=== PATIENT | female | born 1970 | race Caucasian/White ===

== ENCOUNTER → 2017-05-10 | Outpatient (CLI) | payer MEDICAID ==
--- NOTE | 2017-05-10 08:45 | US ---
EXAMINATION TYPE: US abdomen complete DATE OF EXAM: 05/10/2017 COMPARISON: NONE CLINICAL HISTORY: R10.84 ABD PAIN. Generalized pain, NPO EXAM MEASUREMENTS: Liver Length: 13.8 cm Gallbladder Wall: 0.2 cm CHD: 0.3 cm Spleen: 9.3 cm Right Kidney: 10.4 x 5.3 x 4.8 cm Left Kidney: 10.1 x 4.9 x 5.2 cm Pancreas: Body and tail obscured by overlying bowel gas Liver: Right posterior avascular echogenic lesion = 1.7 x 1.4 x 1.2 cm Gallbladder: wnl Evidence for sonographic Quintanilla's sign: neg CBD: Obscured by overlying bowel gas CHD: wnl Spleen: wnl Right Kidney: Lower pole cystic appearing lesion with some internal complexity = 1.7 x 1.5 x 1.6 cm Left Kidney: wnl Upper IVC: wnl Abd Aorta: wnl The liver is homogenous other than the above mentioned lesion. The intrahepatic portion of the IVC a nd proximal abdominal aorta are within normal limits. There is no evidence of cholelithiasis. The visualized portions of the pancreas are homogenous. The spleen is unremarkable. Kidneys are symmetr ic and free of hydronephrosis. IMPRESSION: 1. Solitary hyperechoic 1.7 cm hepatic lesion most commonly representing a hemangioma in a patient wi th no known underlying liver disease and in this age group. Further characterization could be perform ed with dynamic enhanced CT abdomen or abdominal MR if desired. 2. Right lower pole cystic appearing lesion with minimal internal complexity, possibly relating to he morrhagic cyst. This could be reassessed with short-term follow-up in 6-12 months.
== END | disposition home or self-care (01) ==
LOC: RADUSWWP 07:31
PROVIDERS: ATTEND Internal Medicine
DX: K76.9 Liver disease, unspecified (principal); N28.1 Cyst of kidney, acquired
CPT/HCPCS: 76700

== ENCOUNTER → 2017-05-10 | Outpatient (CLI) | payer MEDICAID ==
[2017-05-10 08:30] LABS: Basophils # (A) 0.1 k/uL (0-0.2); Basophils % (A) 1 %; Eosinophils # (A) 0.1 k/uL (0-0.7); Eosinophils % (A) 3 %; HCT 40.3 % (34.0-46.0); HGB 13.9 gm/dL (11.4-16.0); Lymphocytes # (A) 2.5 k/uL (1.0-4.8); Lymphocytes % (A) 46 %; MCH 32.3 pg (25.0-35.0); MCHC 34.6 g/dL (31.0-37.0); MCV 93.5 fL (80.0-100.0); Mean Platelet Volume 6.7; Monocytes # (A) 0.3 k/uL (0-1.0); Monocytes % (A) 5 %; Neutrophils # (A) 2.4 k/uL (1.3-7.7); Neutrophils % (A) 44 %; Platelet Count 271 k/uL (150-450); RBC 4.31 m/uL (3.80-5.40); RDW 12.3 % (11.5-15.5); WBC 5.5 k/uL (3.8-10.6)
[2017-05-10 10:19] LABS: ALT 23 U/L (9-52); AST 20 U/L (14-36); Albumin 3.9 g/dL (3.5-5.0); Alkaline Phosphatase 48 U/L (38-126); Anion Gap 9 mmol/L; Blood Urea Nitrogen 16 mg/dL (7-17); Calcium 9.1 mg/dL (8.4-10.2); Carbon Dioxide 25 mmol/L (22-30); Chloride 108 mmol/L (98-107); Cholesterol 216 mg/dL (<200); Glucose 86 mg/dL (74-99); HDL Cholesterol 59 mg/dL (40-60); LDL Cholesterol,Calculated 143 mg/dL (0-99); Potassium 4.3 mmol/L (3.5-5.1); Sodium 142 mmol/L (137-145); Total Bilirubin 0.5 mg/dL (0.2-1.3); Total Protein 6.8 g/dL (6.3-8.2); Triglycerides 69 mg/dL (<150)
== END | disposition home or self-care (01) ==
LOC: LABWHC1 08:01
PROVIDERS: ATTEND Internal Medicine
DX: Z00.00 Encounter for general adult medical examination without abnormal findings (principal); E55.9 Vitamin D deficiency, unspecified; R53.83 Other fatigue
CPT/HCPCS: 36415; 80053; 80061; 82306; 84439; 84443; 84481; 85025

== ENCOUNTER → 2017-05-17 | Outpatient (CLI) | payer MEDICAID ==
--- NOTE | 2017-05-20 10:58 | CT ---
EXAMINATION TYPE: CT abdomen pelvis w con DATE OF EXAM: 05/17/2017 COMPARISON: 05/10/2017 HISTORY: Left sided flank pain for [address] DLP: 944.6 mGycm Automated exposure control for dose reduction was used. CONTRAST: CT scan of the abdomen pelvis is performed with IV Contrast, patient injected with 100 mL of Omnipaqu e 300. FINDINGS- LUNG BASES- No significant abnormality is appreciated. LIVER/GB-there is a 1.5 cm lesion involving the posterior segment right lobe the liver which does not meet the criteria of simple cyst. May represent a small hemangioma. Either repeat CT scan with heman gioma protocol or MRI could BE obtained to confirm.. PANCREAS- No gross abnormality is seen. SPLEEN- No gross abnormality is seen. Tiny accessory spleen noted. ADRENALS- No gross abnormality is seen. KIDNEYS/BLADDER-there is a 1.5 cm lower pole right renal lesion suggestive of simple cyst. There is a 3 mm lower pole right renal calculus.. BOWEL- no bowel dilatation. Colon is decompressed which limits its evaluation. No obvious abnormalit y noted LYMPH NODES- No greater than 1cm abdominal or pelvic lymph nodes are appreciated. OSSEOUS STRUCTURES- No significant abnormality is seen. OTHER- aorta of normal caliber. No free fluid. IMPRESSION- 1. There is a 1.5 cm hepatic lesion corresponds with the hyperechoic lesion by ultrasound is most lik rach related to hemangioma. Follow-up with hemangioma protocol or MRI could BE obtained as clinically warranted. 2. Nonobstructing right renal stone. No evidence of left renal or ureteral stone. 3. 1.5 cm lower pole right renal lesion measures 20 Hounsfield units and does not meet the criteria o f a simple cyst. This also correlates with the recent ultrasound. A represent a hemorrhagic or high p roteinaceous content to a cyst. Other etiologies not excluded. MRI follow-up suggested.
== END | disposition home or self-care (01) ==
LOC: RADCTMAIN 16:09
PROVIDERS: ATTEND Internal Medicine
DX: N20.0 Calculus of kidney (principal); K76.89 Other specified diseases of liver
CPT/HCPCS: 74177; Q9967

== ENCOUNTER → 2017-06-05 | Outpatient (CLI) | payer MEDICAID ==
--- NOTE | 2017-06-06 08:52 | NM ---
Nuclear medicine hepatobiliary scan. HISTORY: Pain. DOSAGE: The patient 8 ounces of ensure plus and 5.19 mCi of Technetium 99m Choletec. FINDINGS: There is normal hepatic extraction. The gallbladder is seen by 20 minutes. Ejection fract ion is 73%. IMPRESSION: 1. Normal hepatobiliary exam
== END | disposition home or self-care (01) ==
LOC: RADNMMAIN 14:48
PROVIDERS: ATTEND Internal Medicine
DX: R10.9 Unspecified abdominal pain (principal)
CPT/HCPCS: 78226; A9537

== ENCOUNTER 2020-05-06 10:20 | Emergency (ER) | payer MEDICAID ==
[2020-05-06 10:29] VITALS: TEMP 97.5
[2020-05-06] MEDS ORDERED: ONDANSETRON 4 MG/2 ML VIAL IVP STA (10:46)
[2020-05-06] MEDS ORDERED: HYDROmorphone 0.5 MG/0.5 ML SYRINGE IVP STA (10:46)
[2020-05-06] MEDS ORDERED: SODIUM CHLORIDE 0.9% 500 ML 500 ML IV STA (10:46)
[2020-05-06] MEDS ORDERED: SODIUM CHLORIDE 0.9% 1,000 ML IV STA (10:46)
--- NOTE | 2020-05-06 11:12 | ED ---
Abdominal Pain HPI - General Chief Complaint: Abdominal Pain Stated Complaint: abd pain Time Seen by Provider: 05/06/20 10:31 Source: patient, family, RN notes reviewed Mode of arrival: ambulatory Limitations: no limitations - History of Present Illness Initial Comments: This is a 49-year-old female presents emergency Department chief complaint left lower quadrant abdominal pain. Patient states pain started 3 days ago. Patient states located left lower quadrant and radiates slightly to her back. 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 Patient states she took doses of Ex-Lax states that she had multiple bowel movements with no relief her symptoms. Patient even stopped her Bentyl which she normally takes for her IBS-D. patient denies any fevers chills no dysuria no hematuria she's had a prior full hysterectomy. No other abdominal surgeries. Patient states that movement makes her pain worse. No dysuria no hematuria no history kidney stones on the left. Patient has had multiple colonoscopies every 5 years and which she's had polyps no history of diverticulitis. Patient has a family history of colon cancer. - Related Data Home Medications Medication Instructions Recorded Confirmed Cholecalciferol (Vitamin D3) 125 mcg PO HS 05/06/20 05/06/20 [Vitamin D3 (5000 Iu)] Citalopram Hydrobromide [CeleXA] 40 mg PO HS 05/06/20 05/06/20 Cyanocobalamin (Vitamin B-12) 1,000 mcg PO HS 05/06/20 05/06/20 [Vitamin B-12] Dicyclomine [Bentyl] 10 mg PO HS 05/06/20 05/06/20 Omeprazole 20 mg PO HS 05/06/20 05/06/20 Previous Rx's Medication Instructions Recorded Amoxicillin/Potassium Clav 1 tab PO Q12HR #20 tab 05/06/20 [Augmentin 875-125 Tablet] Allergies Allergy/AdvReac Type Severity Reaction Status Date / Time DECONGESTANTS Allergy Unknown Uncoded 05/06/20 12:52 Review of Systems ROS Statement: Those systems with pertinent positive or pertinent negative responses have been documented in the HPI. ROS Other: All systems not noted in ROS Statement are negative. Past Medical History History of Any Multi-Drug Resistant Organisms: None Reported Past Surgical History: Hysterectomy, Orthopedic Surgery Additional Past Surgical History / Comment(s): right knee, jaw sx Past Psychological History: No Psychological Hx Reported Smoking Status: Never smoker Past Alcohol Use History: Daily Past Drug Use History: Marijuana General Exam Limitations: no limitations General appearance: alert, in no apparent distress Head exam: Present: atraumatic, normocephalic, normal inspection ENT exam: Present: normal exam, mucous membranes moist Neck exam: Present: normal inspection, full ROM. Absent: tenderness, meningismus, lymphadenopathy Respiratory exam: Present: normal lung sounds bilaterally. Absent: respiratory distress, wheezes, rales, rhonchi, stridor Cardiovascular Exam: Present: regular rate, normal rhythm, normal heart sounds. Absent: systolic murmur, diastolic murmur, rubs, gallop, clicks GI/Abdominal exam: Present: soft, tenderness (Moderate left lower quadrant tenderness), normal bowel sounds. Absent: distended, guarding, rebound, rigid Back exam: Absent: CVA tenderness (R), CVA tenderness (L) Neurological exam: Present: alert, oriented X3 Skin exam: Present: warm, dry, intact, normal color. Absent: rash Course Vital Signs 05/06/20 05/06/20 10:27 11:29 Temperature 97.5 F L Pulse Rate 68 Respiratory 16 18 Rate Blood Pressure 136/92 O2 Sat by Pulse 100 Oximetry Medical Decision Making - Medical Decision Making 49-year-old female presents emergency Department with chief complaint of abdominal pain CT shows evidence of uncomplicated colitis. Patient pain is improved this time labs unremarkable vitals are stable. I did offer patient adm ission versus home patient will attempt go home with oral antibiotics, pain medication we discussed croup her diet and return parameters. Patient follow-up colonoscopy with her GI physician. - Lab Data Result diagrams: 05/06/20 11:04 05/06/20 11:04 Lab Results 05/06/20 05/06/20 05/06/20 Range/Units 11:04 11:04 11:04 WBC 4.7 (3.8-10.6) k/uL RBC 4.55 (3.80-5.40) m/uL Hgb 14.8 (11.4-16.0) gm/dL Hct 43.1 (34.0-46.0) % MCV 94.7 (80.0-100.0) fL MCH 32.6 (25.0-35.0) pg MCHC 34.4 (31.0-37.0) g/dL RDW 12.0 (11.5-15.5) % Plt Count 268 (150-450) k/uL MPV 6.7 Neutrophils % 44 % Lymphocytes % 43 % Monocytes % 6 % Eosinophils % 4 % Basophils % 1 % Neutrophils # 2.1 (1.3-7.7) k/uL Lymphocytes # 2.0 (1.0-4.8) k/uL Monocytes # 0.3 (0-1.0) k/uL Eosinophils # 0.2 (0-0.7) k/uL Basophils # 0.1 (0-0.2) k/uL PT 10.3 (9.0-12.0) sec INR 1.0 (<1.2) APTT 24.3 (22.0-30.0) sec Sodium (137-145) mmol/L Potassium (3.5-5.1) mmol/L Chloride (98-107) mmol/L Carbon Dioxide (22-30) mmol/L Anion Gap mmol/L BUN (7-17) mg/dL Creatinine (0.52-1.04) mg/dL Est GFR (CKD-EPI)AfAm (>60 ml/min/1.73 sqM) Est GFR (CKD-EPI)NonAf (>60 ml/min/1.73 sqM) Glucose (74-99) mg/dL Plasma Lactic Acid Thomas (0.7-2.0) mmol/L Calcium (8.4-10.2) mg/dL Total Bilirubin (0.2-1.3) mg/dL AST (14-36) U/L ALT (4-34) U/L Alkaline Phosphatase (38-126) U/L Total Protein (6.3-8.2) g/dL Albumin (3.5-5.0) g/dL Amylase (30-110) U/L Lipase (23-300) U/L Urine Color Yellow Urine Appearance Clear (Clear) Urine pH 5.0 (5.0-8.0) Ur Specific [place] 1.021 (1.001-1.035) Urine Protein Negative (Negative) Urine Glucose (UA) Negative (Negative) Urine Ketones Negative (Negative) Urine Blood Negative (Negative) Urine Nitrite Negative (Negative) Urine Bilirubin Negative (Negative) Urine Urobilinogen <2.0 (<2.0) mg/dL Ur Leukocyte Esterase Negative (Negative) 05/06/20 05/06/20 Range/Units 11:04 11:04 WBC (3.8-10.6) k/uL RBC (3.80-5.40) m/uL Hgb (11.4-16.0) gm/dL Hct (34.0-46.0) % MCV (80.0-100.0) fL MCH (25.0-35.0) pg MCHC (31.0-37.0) g/dL RDW (11.5-15.5) % Plt Count (150-450) k/uL MPV Neutrophils % % Lymphocytes % % Monocytes % % Eosinophils % % Basophils % % Neutrophils # (1.3-7.7) k/uL Lymphocytes # (1.0-4.8) k/uL Monocytes # (0-1.0) k/uL Eosinophils # (0-0.7) k/uL Basophils # (0-0.2) k/uL PT (9.0-12.0) sec INR (<1.2) APTT (22.0-30.0) sec Sodium 139 (137-145) mmol/L Potassium 4.4 (3.5-5.1) mmol/L Chloride 107 (98-107) mmol/L Carbon Dioxide 25 (22-30) mmol/L Anion Gap 7 mmol/L BUN 17 (7-17) mg/dL Creatinine 0.66 (0.52-1.04) mg/dL Est GFR (CKD-EPI)AfAm >90 (>60 ml/min/1.73 sqM) Est GFR (CKD-EPI)NonAf >90 (>60 ml/min/1.73 sqM) Glucose 88 (74-99) mg/dL Plasma Lactic Acid Thomas 1.1 (0.7-2.0) mmol/L Calcium 9.4 (8.4-10.2) mg/dL Total Bilirubin 0.7 (0.2-1.3) mg/dL AST 28 (14-36) U/L ALT 17 (4-34) U/L Alkaline Phosphatase 51 (38-126) U/L Total Protein 7.7 (6.3-8.2) g/dL Albumin 4.7 (3.5-5.0) g/dL Amylase 89 (30-110) U/L Lipase 113 (23-300) U/L Urine Color Urine Appearance (Clear) Urine pH (5.0-8.0) Ur Specific [place] (1.001-1.035) Urine Protein (Negative) Urine Glucose (UA) (Negative) Urine Ketones (Negative) Urine Blood (Negative) Urine Nitrite (Negative) Urine Bilirubin (Negative) Urine Urobilinogen (<2.0) mg/dL Ur Leukocyte Esterase (Negative) Disposition Clinical Impression: Colitis Disposition: HOME SELF-CARE Condition: Stable Instructions (If sedation given, give patient instructions): Colitis (ED) Additional Instructions: Please return to the Emergency Department if symptoms worsen or any other concerns. Prescriptions: Amoxicillin/Potassium Clav [Augmentin 875-125 Tablet] 1 tab PO Q12HR #20 tab Is patient prescribed a controlled substance at d/c from ED?: No Referrals: Jocelyn Loaiza MD [Primary Care Provider] - 1-2 days Time of Disposition: 12:58
[2020-05-06 11:18] LABS: Basophils # (A) 0.1 k/uL (0-0.2); Basophils % (A) 1 %; Eosinophils # (A) 0.2 k/uL (0-0.7); Eosinophils % (A) 4 %; HCT 43.1 % (34.0-46.0); HGB 14.8 gm/dL (11.4-16.0); Lymphocytes % (A) 43 %; MCH 32.6 pg (25.0-35.0); MCHC 34.4 g/dL (31.0-37.0); MCV 94.7 fL (80.0-100.0); Mean Platelet Volume 6.7; Monocytes # (A) 0.3 k/uL (0-1.0); Monocytes % (A) 6 %; Neutrophils # (A) 2.1 k/uL (1.3-7.7); Neutrophils % (A) 44 %; Platelet Count 268 k/uL (150-450); RBC 4.55 m/uL (3.80-5.40); WBC 4.7 k/uL (3.8-10.6)
[2020-05-06 11:19] LABS: Appearance,Urine Clear (Clear); Bilirubin,Urine Negative (Negative); Blood,Urine Negative (Negative); Color,Urine Yellow; Glucose,Urine (UA) Negative (Negative); Ketones,Urine Negative (Negative); Leukocyte Esterase,Urine Negative (Negative); Nitrite,Urine Negative (Negative); Protein,Urine Negative (Negative); Specific Gravity,Urine 1.021 (1.001-1.035); Urobilinogen,Urine <2.0 mg/dL (<2.0)
[2020-05-06 11:28] LABS: Partial Thromboplastin Time 24.3 sec (22.0-30.0); Prothrombin Time 10.3 sec (9.0-12.0)
[2020-05-06 11:33] LABS: ALT 17 U/L (4-34); African American GFR (CKD) >90 (>60 ml/min/1.73 sqM); Albumin 4.7 g/dL (3.5-5.0); Amylase 89 U/L (30-110); Anion Gap 7 mmol/L; Blood Urea Nitrogen 17 mg/dL (7-17); Calcium 9.4 mg/dL (8.4-10.2); Carbon Dioxide 25 mmol/L (22-30); Chloride 107 mmol/L (98-107); Glucose 88 mg/dL (74-99); Lipase 113 U/L (23-300); Non-African American GFR(CKD) >90 (>60 ml/min/1.73 sqM); Sodium 139 mmol/L (137-145); Total Bilirubin 0.7 mg/dL (0.2-1.3); Total Protein 7.7 g/dL (6.3-8.2)
[2020-05-06 11:36] LABS: AST 28 U/L (14-36); Alkaline Phosphatase 51 U/L (38-126); Potassium 4.4 mmol/L (3.5-5.1)
[2020-05-06 11:55] VITALS: RESP 18
--- NOTE | 2020-05-06 12:30 | CT ---
EXAMINATION TYPE: CT abdomen pelvis w con DATE OF EXAM: 05/06/2020 HISTORY: LLQ pain with nausea CT DLP: 966.3mGycm Automated Exposure Control for Dose Reduction was Utilized. CONTRAST: CT scan of the abdomen and pelvis is performed without oral but with IV Contrast, patient injected wi th 100 mL of Isovue 300. COMPARISON: CT abdomen and pelvis May 17, 2017 FINDINGS: LUNG BASES: No significant abnormality is appreciated. LIVER/GB: Stable 1.4 cm low dense lesion posterior right hepatic lobectomy 26 shows peripheral nodula r enhancement with centripetal filling consistent with small hemangioma.. PANCREAS: No significant abnormality is seen. SPLEEN: No significant abnormality is seen. ADRENALS: No significant abnormality is seen. KIDNEYS: Symmetric cortical medullary uptake and excretion without hydronephrosis seen bilaterally. S table 6 mm calculus lower pole right kidney axial image 41. Adjacent partially exophytic thin-walled 1.5 cm cyst redemonstrated. BOWEL: No significant no suspicious small or large bowel dilatation. Suboptimal evaluation of bowel without enteric contrast. Mild wall thickening distal one third transverse colon extends through sple reynaldo flexure, there is moderate wall thickening in the left colon with [id number] wall thickenin g extending contiguously to the mid sigmoid colon, more mild wall thickening in the sigmoid rectal co jaclyn. Occasional sigmoid colonic diverticula. No surrounding inflammatory change. UTERUS/ADNEXA: Uterus surgically absent. Occasional scattered tiny pelvic phleboliths bilaterally LYMPH NODES: No greater than 1cm abdominal or pelvic lymph nodes are appreciated. OSSEOUS STRUCTURES: Mild disc space narrowing L4-L5 level. Moderate disc space narrowing L5-S1 level. Facet arthropathy lower lumbar levels OTHER: No significant additional abnormality is seen. IMPRESSION: Suboptimal study. Suspect new mild uncomplicated distal acute colitis, consider infectiou s and/or inflammatory etiologies. Finding could reflect product of poor distention. Correlate clinica lly. No new or acute finding otherwise seen.
[2020-05-06] MEDS ORDERED: cefTRIAXone IN SWFI 1,000 MG/10 ML SYRINGE IVP STA (12:58)
[2020-05-06] MEDS ORDERED: ACET/COD 300 MG/30 MG STARTER PACK 6 TAB BTL PO STA (12:59)
[2020-05-06 13:35] VITALS: BP 126/79; PULSE 55
== END 2020-05-06 13:35 | disposition home or self-care (01) ==
LOC: EC 10:20
DX: K52.9 Noninfective gastroenteritis and colitis, unspecified (principal); F12.90 Cannabis use, unspecified, uncomplicated; Z90.710 Acquired absence of both cervix and uterus
CPT/HCPCS: 36415; 80053; 82150; 83605; 83690; 85025; 85610; 85730; 81003; 74177; 99284; 96365; 96375; 96361; J2405; J0696; J1170; Q9967

== ENCOUNTER → 2022-08-08 | Outpatient (CLI) | payer MEDICAID ==
--- NOTE | 2022-08-08 15:40 | BD ---
EXAMINATION TYPE: Axial Bone Density DATE OF EXAM: 08/08/2022 CLINICAL HISTORY: 51 years old Female. ICD-10 CODE: Z78.0 ASYMPTOMATIC MENOPAUSAL Height: 64 in Weight: 178 lbs FRAX RISK QUESTIONS: Secondary Osteoporosis: 3. Menopause before 45: total hysterectomy age 43 RISK FACTORS HISTORY OF: Active: yes Diet low in dairy products/other sources of calcium: yes Postmenopausal woman: total hysterectomy age 43 Take estrogen and/or progesterone medications: not now How lon years MEDICATIONS: Additional Medications: mood stabilizer meds, acid reflux meds EXAM MEASUREMENTS: Bone mineral densitometry was performed using the [employer]. Bone mineral density as measured about the Lumbar spine is: ----- L1-L4(G/cm2): 1.439 T Score Values are as follows: ----- L1: 1.2 ----- L2: 1.8 ----- L3: 2.5 ----- L4: 2.7 ----- L1-L4: 2.2 Z Score Values are as follows: ----- L1: 1.3 ----- L2: 1.9 ----- L3: 2.6 ----- L4: 2.8 ----- L1-L4: 2.2 Bone mineral density baseline Bone mineral density about the R hip (g/cm2): 1.097 Bone mineral density about the L hip (g/cm2): 1.128 T Score values are as follows: -----R Neck: 0.5 -----L Neck: 0.7 -----R Total: 1.0 -----L Total: 0.7 Z Score values are as follows: -----R Neck: 1.1 -----L Neck: 1.3 -----R Total: 0.9 -----L Total: 1.1 Bone mineral density baseline FRAX%s: The graph provided illustrates a 4.0% chance for a major osteoporotic fx and a 0.0% chance fo r the hips probability for fx in 10 years time. IMPRESSION: Normal (Values between +1 and -1 indicate normal bone mass). Consider repeating this study in 5 year s or sooner if there is some new clinical indication. NOTE: T-SCORE=SD OF THE YOUNG ADULT MEAN.
--- NOTE | 2022-08-09 20:12 | MM ---
Reason for Exam: Screening (asymptomatic). Last mammogram was performed 1 year(s) and 9 month(s) ago. Patient History: Menarche at age 12. First Full-Term at age 24. Left ovary removed at age 43. Right ovary removed at age 43. Hysterectomy at age 43. Postmenopausal. Paternal grandmother had breast cancer, age 80. Paternal aunt had breast cancer, age 55. Paternal aunt had breast cancer at or over age 50. Risk Values: Eunice 5 year model risk: 1.2%. NCI Lifetime model risk: 9.6%. Prior Study Comparison: 02/14/2018 Bilateral MG 3D screening mammo w/cad, [facility]. 10/23/2019 Bilateral MG 3D screening mammo w/cad, Unknown. 11/25/2020 Bilateral MG 3D screening mammo w/cad, [facility]. Tissue Density: There are scattered fibroglandular densities. Findings: Analyzed By CAD. There is no suspicious group of microcalcifications or new suspicious mass in either breast. Overall Assessment: Negative, BI-RAD 1 Management: Screening Mammogram of both breasts in 1 year. . Patient should continue monthly self-breast exams. A clinical breast exam by your physician is recommended on an annual basis. This exam should not preclude additional follow-up of suspicious palpable abnormalities. Note on Eunice scores and lifetime risk: 1. A Eunice score greater than 3% is considered moderate risk. If this is the case, consider specialist referral to assess eligibility for a risk reducing agent. 2. If overall lifetime risk for the development of breast cancer is 20% or higher, the patient may qualify for future screening with alternating mammogram and breast MRI. Electronically signed and approved by: Jax Romero M.D. Radiologist
== END | disposition home or self-care (01) ==
LOC: RADMAMWWP 13:45
PROVIDERS: ATTEND Family Medicine
DX: Z12.31 Encounter for screening mammogram for malignant neoplasm of breast (principal); Z78.0 Asymptomatic menopausal state; Z80.3 Family history of malignant neoplasm of breast
CPT/HCPCS: 77063; 77067; 77080

== ENCOUNTER → 2024-07-13 | Outpatient (CLI) | payer BC ==
--- NOTE | 2024-07-13 07:35 | MM ---
Reason for Exam: Screening (asymptomatic). Last mammogram was performed 1 year(s) and 11 month(s) ago. Patient History: Menarche at age 12. First Full-Term at age 24. Left ovary removed at age 43. Right ovary removed at age 43. Hysterectomy at age 43. Postmenopausal. Maternal grandmother had breast cancer, age 80. Paternal aunt had breast cancer, age 55. Risk Values: Eunice 5 year model risk: 1.3%. NCI Lifetime model risk: 9.3%. Prior Study Comparison: 10/23/2019 Bilateral MG 3D screening mammo w/cad, Unknown. 11/25/2020 Bilateral MG 3D screening mammo w/cad, [facility]. 08/08/2022 Bilateral MG 3D screening mammo w/cad, [facility]. Tissue Density: There are scattered areas of fibroglandular density. Findings: Analyzed By CAD. Benign appearing bilateral axillary lymph nodes are redemonstrated. There is no suspicious group of microcalcifications or new suspicious mass in either breast. Overall Assessment: Negative, BI-RAD 1 Management: Screening Mammogram of both breasts in 1 year. . Patient should continue monthly self-breast exams. A clinical breast exam by your physician is recommended on an annual basis. This exam should not preclude additional follow-up of suspicious palpable abnormalities. Note on Eunice scores and lifetime risk: 1. A Eunice score greater than 3% is considered moderate risk. If this is the case, consider specialist referral to assess eligibility for a risk reducing agent. 2. If overall lifetime risk for the development of breast cancer is 20% or higher, the patient may qualify for future screening with alternating mammogram and breast MRI. [facility], , 07/13/2024 7:32 AM. Electronically signed and approved by: Roscoe Gtz M.D.
== END | disposition home or self-care (01) ==
LOC: RADMAMWWP 06:59
PROVIDERS: ATTEND Family Medicine
DX: Z12.31 Encounter for screening mammogram for malignant neoplasm of breast (principal); R92.323 Mammographic fibroglandular density, bilateral breasts; Z78.0 Asymptomatic menopausal state; Z80.3 Family history of malignant neoplasm of breast
CPT/HCPCS: 77063; 77067